=== PATIENT | female | born 1990 | race Caucasian/White ===

== ENCOUNTER 2024-05-26 23:28 | Emergency (ER) | payer OTHER ==
[~2024-05-26] VITALS: Ht 160 cm; Wt 70.3 kg
[2024-05-26 23:35] VITALS: BP_SYST 131; PULSE 71; RESP 20; TEMP 97.4; O2SAT 99
[2024-05-26 23:42] VITALS: BP_SYST 131; PULSE 71; RESP 20; TEMP 97.4; O2SAT 99
== END 2024-05-26 23:52 ==
LOC: SED 23:28
DX: F10.129 Alcohol abuse with intoxication, unspecified (principal); Y90.9 Presence of alcohol in blood, level not specified
CPT/HCPCS: 36415; 99283